=== PATIENT | female | born 1985 | race Caucasian/White ===

== ENCOUNTER 2016-07-09 07:09 | Day surgery (SDC) | payer OTHER ==
--- NOTE | 2016-07-04 14:36 | PCM.ANEPRE ---
Anesthesia Pre-Op Review Additional Comments 31 yo female with severe persistent asthma and BMI [address] Gan on 07/09. Pt continues to smoke, but has reduced to 2 cigarettes /day. On prednisone burst. On long and short acting beta agonist and inhaled steroid. Has attempted smoking sesation, but cannot quit. Surgery OK to proceed as long as she has followed her inhaler (and burst) regimen. She should be made aware of her higher than average risks of respiratory complications intra/post op. She should be encouraged to quit smoking. Dr. Gan has been contacted by anesthesia team, and should also be awre of the higher than normal risks of the procedure given her asthma. That said, while we have not heard back from Dr. Gan, from anesthesia perspective, the patient is as well optimized as can be reasonable expected in the setting of severe asthma. Teodoro Dodson Chart Reviewed by: Daniel Burton MD, MD July 04, 2016 14:36 Teodoro Dodson MD July 06, 2016 09:40
[2016-07-09] VITALS (10 sets, daily range): BP systolic 111–143; BP diastolic 42–110; PULSE 83–101; RESP 16–25; O2SAT 92–99
[~2016-07-09] VITALS: Ht 165.1 cm; Wt 126.7 kg
[~2016-07-09 07:09] MED LIST: ALBU18HF INH; ALBU8.5H2 INHALATION; ALBU90AE IH; BECL8.7A6 INHALATION; DULO60CA42 PO; Dexamethasone Inj 20 MG in 0.9% Sodium Chloride-Pha MIX 50 ML IV ONE; HYDR15SO8 PO; KEP500TA PO; MEDR150D7 IM; METH750T3 PO; MONT10TA23 PO; OMEP40CA36 PO; OXYC5TAB72 PO; SALM50DI IH; mirena INTRAUTERI
[2016-07-09] MEDS ORDERED: Propofol 10,000 mCg/mL 20 mL Inj ONE (07:10)
[2016-07-09] MEDS ORDERED: Dexamethasone 4 mg/mL Inj ONE (07:10)
[2016-07-09] MEDS ORDERED: Remifentanil 1 mg/3 mL Inj ONE (07:10)
[2016-07-09] MEDS ORDERED: Ondansetron 2 mg/mL 2 mL Inj ONE (07:10)
[2016-07-09] MEDS: Lactated Ringer's 1,000 ML IV SCH ×2 (07:15→09:10)
[2016-07-09] MEDS ORDERED: Lactated Ringer's 500 ML IV PRN (08:14)
[2016-07-09] MEDS ORDERED: Lactated Ringer's 1,000 ML IV SCH (08:14)
--- NOTE | 2016-07-09 08:14 | PCM.HPANE ---
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) SCHMIDT HUBERT SYNDROME Past Anesthesia History Anesthesia History: Positive for:: Abnormal Airway (chronic tonsillitis, tonsillar hypertrophy current admission problem), Denies:: Anesthesia Reactions Diabetes History Hx Diabetes?: No MRSA MRSA: No Medications Hypertension Medication: No Home Meds Incl Beta Sandra: No Reported Medications oxyCODONE 5 Mg Tablet5 Mg PO Q4H PRN For Pain Ref 0 07/03/16 Hydrocodone-Acetaminophen 7.5-325/15 mL 15 Ml Moaqpdol57 Ml PO Q4 PRN For Pain Ref 0 07/03/16 Albuterol HFA (Proair HFA)8.5 Gm Hfa.aer.ad2 Puffs INHALATION Q4H PRN For Shortness of Breath #1 INHALER 07/03/16 [mirena] 20mcg/24hrs No Conflict Check20 Mcg INTRAUTERI DAILY 07/03/16 Medroxyprogesterone Acetate 150 Mg/1 Ml Mpvognh679 Mg IM [id number] 07/03/16 Discontinued Reported Medications Omeprazole 40 Mg Capsule.dr40 Mg PO DAILY Ref 0 07/03/16 Methocarbamol 750 Mg Sbujlj763 Mg PO QID PRN For Spasm Ref 0 07/03/16 Duloxetine (Cymbalta)60 Mg Capsule.dr60 Mg PO DAILY Ref 0 07/03/16 Albuterol Sulfate (Ventolin HFA Inhaler)200 Puff/18 Gm Inhaler1 Puff INH Q4 PRN For Wheezing #1 INHALER Ref 0 07/03/16 Montelukast 10 Mg Zowpgm64 Mg PO HS Ref 0 07/03/16 Salmeterol Xinafoate (Serevent Diskus)50 Mcg/Puff Inhaler1,400 Mcg IH BID 07/03/16 Beclomethasone Dipropionate (Qvar)8.7 Gm Aer.w.adap1 Puff INHALATION BID #8.7 GM 5/2/17 Albuterol Sulfate (Proair Respiclick)90 Mcg Aer.pow.ba90 Mcg IH PRN For Shortness of Breath 07/03/16 Levetiracetam (Keppra)500 Mg Cogtcg220 Mg PO BID 07/03/16 Discontinued Scripts Ondansetron ODT (Zofran ODT)4 Mg Tablet4 Mg PO Q4H PRN For Nausea #10 TABLET Prov:Chris Tapia MD 01/09/16 Prednisone (PredniSONE)20 Mg Qfcosz02 Mg PO TID #9 TABLET Ref 0 Prov:Cricket Yadav MD 08/24/15 Prednisone (PredniSONE)20 Mg Irskoe29 Mg PO TID #15 TABLET Prov:Cricket Yadav MD 04/12/15 Benzonatate (Tessalon Perle)100 Mg Diazrbm680 Mg PO TID PRN For Cough #15 CAPSULE Prov:Cricket Yadav MD 04/12/15 History History of ENT Problems?: Yes HEENT History: Positive for:: Abnormal Airway (chronic tonsillitis, tonsillar hypertrophy current admission problem) Denies:: Hearing Problem Denture Type: None Teeth Condition: Within Normal Limits Hx of Heart Problems?: No Cardiovascular History: Denies:: Congestive Heart Failure Hypertension Hx of Respiratory Problem?: Yes Respiratory History: Positive for:: Asthma (severe persistent asthma) Dyspnea Pneumonia (hx of) Use of C-PAP Machine Use of Inhalers / NEBS Denies:: Tuberculosis Hx Neurologic Problems?: Yes Neurological History: Positive for:: Headaches Seizures Denies:: CVA Multiple Sclerosis Parkinson's Disease Hx of GI Problems?: Yes Hx of Problems?: No Genitourinary History: Denies:: Kidney Stones Urinary Tract Infection Female Hx: Denies:: Currently Endometriosis Pelvic Inflammatory Problems with Breasts? Skin History: Denies:: History Skin Disorders? Pressure Ulcers Hx Musculoskeletal Problems?: Yes Musculoskeletal History: Positive for:: Fibromyalgia Denies:: Musculoskeletal Trauma Hx of Psycho/Social Problems?: No Hx Surgeries?: Yes (gall bladder removal) Hx Any Other Health Problems?: Yes Other History: Positive for:: Hospitalization Denies:: Cancer Endocrine Disease Thyroid Disease History Blood Transfusions: Denies:: Blood Transfuse Reaction Blood Transfusions Hx Diabetes: No Hx Alcohol Use: NoHx Substance Use: No Smoking Status: Current Every Day Smoker Have You Smoked inLast 12 mo: Yes (2 cigarettes daily) Stop/Bang S-Snoring: Do You Snore Loudly: Yes T-Tired: feel tired, fatigued: Yes O-Obsered: Observed not breath: Yes P-Blood Pressure: treated: No B- Body Mass Index > 35 kg/m2: Yes A- Age over 50: No N- Neck Large Circumference: Yes G- Gender Male: No JOSE Total Score: 5 JOSE Risk Assessment: High Risk, =/>3 Yes JOSE Category 2: Yes Risk Assessment Category Category 1A: Patient has history of documented sleep apnea, and HAS NOT received any narcotic, sedative or anesthesia administration during this stay. Category 1B: Patient has history of documented sleep apnea, and HAS received any narcotic , sedative or anesthesia administration during this stay Category 2: Patient has SUSPECTED Obstructive Sleep Apnea, and HAS received any narcotic , sedative or anesthesia administration during this stay. Category 3: Patient has SUSPECTED Obstructive Sleep Apnea and HAS NOT received narcotic, sedative or anesthesia administration during this stay. Category 4: Outpatient in Procedural Areas with known sleep apnea or who screen positive for High Risk via the STOP/BANG questionnaire. Exam Exam Vital Signs Vital Signs Date Time Temp Pulse Resp B/P Pulse Ox O2 Delivery O2 Flow Rate FiO2 07/09/16 07:46 CPAP/BIPAP 07/09/16 07:46 36.0 87 18 122/84 96 Room Air General Appearance: Alert HEENT/AIRWAY: MP 2 Lungs: Clear to Auscultation Heart: Exam Unremarkable Meds/Labs/Diagnostics Admission Meds Current Medications Dexamethasone Sodium Phosphate 20 mg/Sodium Chloride 52 ml @ 208 mls/hr PREOP ONCE IV Last administered on 07/09/16 07:58; Start 07/09/16 at 06:00; Stop at 06:14; Status DC Lactated Ringer's (Lr) 1,000 ml @ 120 mls/hr Q8H20M IV Last administered on 07:15; Start 07/09/16 at 05:00; Stop 07/09/16 at 13:19 Plan Impression Patient chart reviewed, patient interviewed and anesthestic plan with risks, benefits, and alternatives discussed, and informed consent obtained. NPO per Anesth. Guidelines: Yes ASA Physical Status: ASA3 Severe Disease Anesthetic Support Modalities: [place] Scope Anesthetic Plan: GA Bene/Risks/Altern/Consents: Yes HP Complete Prior to Induction: Yes Richie Merritt MD July 09, 2016 08:14
[2016-07-09] MEDS ORDERED: fentaNYL-PF 50 mCg/mL 2 mL Inj IVPUSH PRN (08:15)
[2016-07-09] MEDS ORDERED: MetoCLOpramide 5 mg/mL 2 mL Inj IVPUSH PRN (08:15)
[2016-07-09] MEDS ORDERED: Ondansetron 2 mg/mL 2 mL Inj IVPUSH PRN (08:15)
[2016-07-09] MEDS ORDERED: HYDROmorphone 1 mg/mL Inj IVPUSH PRN (08:15)
[2016-07-09] MEDS ORDERED: Phenylephrine 10,000 mCg/mL Inj IVPUSH PRN (08:15)
[2016-07-09] MEDS ORDERED: Dexamethasone 4 mg/mL Inj IVPUSH PRN (08:15)
[2016-07-09] MEDS ORDERED: EPHEDrine Sulfate 50 mg/mL Inj IVPUSH PRN (08:15)
[2016-07-09] MEDS ORDERED: Bupivacaine-MPF 0.25%/EPI 30 mL Inj INFILTRATE ONE (09:20)
--- NOTE | 2016-07-09 10:09 | OP ---
[address] [address] OPERATIVE REPORT PATIENT: BRAD CURTIS : 1985 MR#: [id number] ADMIT: 07/09/2016 JOB ID: [id number] DATE OF SURGERY: PREOPERATIVE DIAGNOSIS(ES): Chronic tonsillitis. POSTOPERATIVE DIAGNOSIS(ES): Chronic tonsillitis. PROCEDURE: Tonsillectomy. SURGEON: Jackson Gan MD HISTORY/INDICATIONS: A 31-year-old with chronic and recurrent acute tonsillitis. PROCEDURE AND FINDINGS: The patient was taken the operative room, placed supine position on the operating table. General endotracheal anesthesia induced. Tonsil mouth gag was inserted and used to expose the oropharynx. The nasopharynx was inspected. No significant adenoidal tissue is present. The tonsil pillars were injected with 0.25% Marcaine with 1:100,000 epinephrine. The right tonsil was grasped at superior pole with curved Allis and retracted medially. Significant cryptic debris was expressed from the tonsil. With the scissor and suction cautery, tonsillectomy was performed. A single 0 chromic [id number]-hj-[id number] suture was placed at the superior pole for a persistent bleeding artery. The same procedure was carried out on the left side. Again, a superior pole suture was used. The patient is awake and extubated in the operative room, returned to the recovery room in good condition. ESTIMATED BLOOD LOSS: 50 cc. PATHOLOGIC SPECIMENS: None. COMPLICATIONS: None.
[2016-07-09] MEDS ORDERED: HYDROcodone-APAP 7.5-325 mg/15 mL 15 mL Solution ONE (10:40)
--- NOTE | 2016-07-09 11:17 | PCM.ANEP1 ---
Post Anesthesia Phase 1 PACU Phase 1 Assessment Vital Signs Vital Signs Date Time Temp Pulse Resp B/P Pulse Ox O2 Delivery O2 Flow Rate FiO2 07/09/16 10:35 86 16 119/98 97 Room Air 07/09/16 10:30 36.5 88 20 135/77 96 Room Air 07/09/16 10:15 83 22 125/78 99 Nasal Cannula 2 07/09/16 10:10 86 22 143/98 98 Nasal Cannula 2 07/09/16 10:05 92 22 139/84 97 Nasal Cannula 2 07/09/16 10:01 94 20 127/99 97 Nasal Cannula 4 07/09/16 09:55 101 20 129/110 93 Nasal Cannula 4 07/09/16 09:50 36.4 100 25 111/42 92 Nasal Cannula 3 07/09/16 07:46 CPAP/BIPAP 07/09/16 07:46 36.0 87 18 122/84 96 Room Air Anesthetic Administered: GA Level of Alertness: Awake, talking JENSEN's with Equal Strength: Yes Pain: No Nausea or Vomiting: No Cardiovascular Function and Hy: Yes Oxygen Delivery: Room Air Lungs: Clear to Auscultation Dermatome Level: Full Sensation Complications: No Follow up Care: No Patient Instructions Provided: Yes Richie Merritt MD July 09, 2016 11:17
== END 2016-07-09 23:59 | disposition home or self-care (01) ==
LOC: SAS 07:09
PROVIDERS: ATTEND Otolaryngology Facial Plastic Surgery
DX: J35.01 Chronic tonsillitis (principal); G40.109 Localization-related (focal) (partial) symptomatic epilepsy and epileptic syndromes with simple partial seizures, not intractable, without status epilepticus; J45.50 Severe persistent asthma, uncomplicated; F17.210 Nicotine dependence, cigarettes, uncomplicated; E66.01 Morbid (severe) obesity due to excess calories; Z68.42 Body mass index [BMI] 45.0-49.9, adult
CPT/HCPCS: 42826; J1100; J1170; J2175; J2250; J2270; J2405; J7120